=== PATIENT | male | born 1990 | race Caucasian/White ===

== ENCOUNTER 2016-10-29 16:39 | Emergency (ER) | payer OTHER ==
[2016-10-29 16:45] VITALS: BP 122/76; PULSE 77; RESP 20; TEMP 98.1
--- NOTE | 2016-10-29 17:09 | ED ---
General Adult HPI - General Chief complaint: Dental/Oral Stated complaint: Tooth Ache Time Seen by Provider: 10/29/16 16:50 Source: patient, RN notes reviewed Mode of arrival: ambulatory Limitations: no limitations - History of Present Illness Initial comments: Patient 26-year-old male who presents emergency room today with a chief complaint of dental infection. Patient does admit to a fractured tooth that happened several months ago of tooth #18. He states it has been getting worse the last 3 days. He does admit to some swelling locally to the area. He denies any other complaints or associated symptoms. Patient denies any recent fever, chills, shortness of breath, chest pain, back pain, abdominal pain, nausea or vomiting, numbness or tingling, dysuria or hematuria, constipation or diarrhea, headaches or visual changes, or any other complaints. - Related Data Home Medications Medication Instructions Recorded Confirmed Ibuprofen [Motrin] 400 mg PO DIRECTED PRN 10/29/16 10/29/16 Previous Rx's Medication Instructions Recorded Acetaminophen-Codeine 300-30mg 1 each PO Q6H PRN #15 tablet 10/29/16 [Tylenol #3] Clindamycin HCl [Cleocin] 300 mg PO Q6HR 10 Days 10/29/16 Allergies Allergy/AdvReac Type Severity Reaction Status Date / Time Penicillins Allergy Swelling Verified 10/29/16 16:45 Review of Systems ROS Statement: Those systems with pertinent positive or pertinent negative responses have been documented in the HPI. ROS Other: All systems not noted in ROS Statement are negative. Past Medical History Past Medical History: No Reported History History of Any Multi-Drug Resistant Organisms: None Reported Additional Past Surgical History / Comment(s): collar bone Past Psychological History: No Psychological Hx Reported Smoking Status: Current every day smoker Past Alcohol Use History: None Reported Past Drug Use History: None Reported General Exam - General Exam Comments Initial Comments: General: The patient is awake and alert, in no distress, and does not appear acutely ill. Eye: Pupils are equal, round and reactive to light, extra-ocular movements are intact. No nystagmus. There is normal conjunctiva bilaterally. No signs of icterus. Ears, nose, mouth and throat: There are moist mucous membranes and no oral lesions. Patient does have poor dental hygiene with multiple fractured teeth. He does have tenderness over the gum line of tooth #18 with a fractured tooth in this area. Neck: The neck is supple, there is no tenderness or JVD. Cardiovascular: There is a regular rate and rhythm. No murmur, rub or gallop is appreciated. Respiratory: Lungs are clear to auscultation, respirations are non-labored, breath sounds are equal. No wheezes, stridor, rales, or rhonchi. Musculoskeletal: Normal ROM, no tenderness. Strength 5/5. Sensation intact. Pulses equal bilaterally 2+. Neurological: A&O x 3. CN II-XII intact, There are no obvious motor or sensory deficits. Coordination appears grossly intact. Speech is normal. Skin: Skin is warm and dry and no rashes or lesions are noted. Psychiatric: Cooperative, appropriate mood & affect, normal judgment. Limitations: no limitations Course Vital Signs 10/29/16 16:44 Temperature 98.1 F Pulse Rate 77 Respiratory 20 Rate Blood Pressure 122/76 O2 Sat by Pulse 99 Oximetry Medical Decision Making - Medical Decision Making Be started on antibiotics. Does have penicillin ALLERGY be given clindamycin. Patient will be given short prescription Tylenol 3 advised to use appropriate for pain and follow-up with dentist in the next 2 days Disposition Clinical Impression: Dental abscess Disposition: HOME SELF-CARE Condition: Good Instructions: Dental Abscess (ED) Additional Instructions: Please follow dentist over the next 2 days. Please use antibiotic as prescribed and pain medication as discussed. Please return to emergency room if any symptoms increase or worsen or for any other concerns. Prescriptions: Acetaminophen-Codeine 300-30mg [Tylenol #3] 1 each PO Q6H PRN #15 tablet PRN Reason: Pain Clindamycin HCl [Cleocin] 300 mg PO Q6HR 10 Days Referrals: None,Stated [Primary Care Provider] - 1-2 days Time of Disposition: 17:08
== END 2016-10-29 17:22 | disposition home or self-care (01) ==
LOC: EC 16:39
DX: K04.7 Periapical abscess without sinus (principal); S02.5XXA Fracture of tooth (traumatic), initial encounter for closed fracture; F17.200 Nicotine dependence, unspecified, uncomplicated; Z88.0 Allergy status to penicillin; X58.XXXA Exposure to other specified factors, initial encounter
CPT/HCPCS: 99282

== ENCOUNTER → 2021-04-12 | Outpatient (CLI) | payer OTHER | END | disposition home or self-care (01) | LOC: LABWHC1 08:14 | PROVIDERS: ATTEND Emergency Medicine | DX: U07.1 COVID-19 (principal) | CPT/HCPCS: 87635 ==

== ENCOUNTER 2022-10-13 17:42 | Emergency (ER) | payer OTHER ==
[2022-10-13 17:51] VITALS: BP 119/74; PULSE 65; RESP 16; TEMP 98.9
[2022-10-13] MEDS ORDERED: CLINDAMYCIN 150 MG CAP PO STA (17:54)
[2022-10-13] MEDS ORDERED: KETOROLAC 15 MG/ML 1 ML VIAL IM STA (17:56)
--- NOTE | 2022-10-13 18:03 | ED ---
ENT HPI - General Chief complaint: Dental/Oral Stated complaint: Dental Time Seen by Provider: 10/13/22 17:53 Source: patient Mode of arrival: ambulatory - History of Present Illness Initial comments: Patient 32-year-old male presents to emergency department for dental pain. It started yesterday in the right lower molar. Taking Tylenol and Motrin with relief. Patient denies fever, chills, nausea, vomiting. He does not have a dentist. - Related Data Home Medications Medication Instructions Recorded Confirmed Ibuprofen [Motrin] 400 mg PO DIRECTED PRN 10/29/16 10/29/16 Previous Rx's Medication Instructions Recorded Acetaminophen-Codeine 300-30mg 1 each PO Q6H PRN #15 tablet 10/29/16 [Tylenol #3] clindamycin HCL [Cleocin] 300 mg PO Q6HR 10 Days cap 10/29/16 Clindamycin [Cleocin] 450 mg PO Q8H #63 capsule 10/13/22 Ibuprofen [Motrin] 600 mg PO Q8HR PRN #30 tab 10/13/22 Allergies Allergy/AdvReac Type Severity Reaction Status Date / Time Penicillins Allergy Swelling Verified 10/29/16 16:45 Review of Systems ROS Statement: Those systems with pertinent positive or pertinent negative responses have been documented in the HPI. ROS Other: All systems not noted in ROS Statement are negative. Past Medical History Past Medical History: No Reported History History of Any Multi-Drug Resistant Organisms: None Reported Additional Past Surgical History / Comment(s): collar bone Past Psychological History: No Psychological Hx Reported Smoking Status: Vaper Past Alcohol Use History: None Reported, Rare Past Drug Use History: None Reported General Exam General appearance: alert, in no apparent distress Head exam: Present: atraumatic, normocephalic, normal inspection Eye exam: Present: normal appearance, PERRL, EOMI. Absent: scleral icterus, conjunctival injection, periorbital swelling ENT exam: Present: normal oropharynx (decayed right lower molar with mild gingival erythema no fluctuance or drainable abscess) Respiratory exam: Present: normal lung sounds bilaterally. Absent: respiratory distress, wheezes, rales, rhonchi, stridor Cardiovascular Exam: Present: regular rate, normal rhythm, normal heart sounds. Absent: systolic murmur, diastolic murmur, rubs, gallop, clicks Neurological exam: Present: alert, oriented X3, CN II-XII intact Psychiatric exam: Present: normal affect, normal mood Skin exam: Present: warm, dry, intact, normal color. Absent: rash Course Vital Signs 10/13/22 17:45 Temperature 98.9 F Pulse Rate 65 Respiratory 16 Rate Blood Pressure 119/74 O2 Sat by Pulse 100 Oximetry Medical Decision Making - Medical Decision Making Was pt. sent in by a medical professional or institution (NICOLAS Martinez, REFERENCE LIBRARIAN, urgent care, hospital, or intermediate...) When possible be specific @ -No Did you speak to anyone other than the patient for history (EMS, parent, family, police, friend...)? What history was obtained from this source @ -No Did you review nursing and triage notes (agree or disagree)? Why? @ -I reviewed and agree with nursing and triage notes Were old charts reviewed (outside hosp., previous admission, EMS record, old EKG, old radiological studies, urgent care reports/EKG's, intermediate records)? Report findings @ -No old charts were reviewed Differential Diagnosis (chest pain, altered mental status, abdominal pain women, abdominal pain men, vaginal bleeding, weakness, fever, dyspnea, syncope, headache, dizziness, GI bleed, back pain, seizure, CVA, palpatations, mental health)? @ Dental infection, dental abscess, Khai angina EKG interpreted by me (3pts min.). @ -None X-rays interpreted by me (1pt min.). @ -None done CT interpreted by me (1pt min.). @ -None done U/S interpreted by me (1pt. min.). @ -None done What testing was considered but not performed or refused? (CT, X-rays, U/S, labs)? Why? @ -None What meds were considered but not given or refused? Why? @ -None Did you discuss the management of the patient with other professionals (professionals i.e. NICOLAS Martinez, REFERENCE LIBRARIAN, lab, RT, psych nurse, manager social, telecom analyst, teacher, customs officer, rehabilitation caseworker)? Give summary @ -No] Was smoking cessation discussed for >3mins.? @ -No Was critical care preformed (if so, how long)? @ -No Were there social determinants of health that impacted care today? How? (Homelessness, low income, unemployed, alcoholism, drug addiction, transportation, low edu. Level, literacy, decrease access to med. care, custodial, rehab)? @ -No Was there de-escalation of care discussed even if they declined (Discuss DNR or withdrawal of care, Hospice)? DNR status @ -No What co-morbidities impacted this encounter? (DM, HTN, Smoking, COPD, CAD, Cancer, CVA, ARF, Chemo, Hep., AIDS, mental health diagnosis, sleep apnea, morbid obesity)? @ -None Was patient admitted / discharged? Hospital course, mention meds given and route, prescriptions, significant lab abnormalities, going to OR and other pertinent info. @ Discharged. Patient treated for dental infection. No evidence of abscess. Discussed return parameters. Patient to follow-up with dentist Undiagnosed new problem with uncertain prognosis? @ -No Drug Therapy requiring intensive monitoring for toxicity (Heparin, Nitro, Insulin, Cardizem)? @ -No Were any procedures done? @ -No Diagnosis/symptom? @ Dental infection Acute, or Chronic, or Acute on Chronic? @ Acute Uncomplicated (without systemic symptoms) or Complicated (systemic symptoms)? @ Uncomplicated Side effects of treatment? @ -No Exacerbation, Progression, or Severe Exacerbation? @ -[No] Poses a threat to life or bodily function? How? (Chest pain, [place], DC, pneumonia, PE, COPD, DKA, ARF, appy, cholecystitis, CVA, Diverticulitis, Homicidal, Suicidal, threat to staff... and all critical care pts) @ -No Dr. Engel is my attending Disposition Clinical Impression: Dental infection Disposition: HOME SELF-CARE Condition: Good Instructions (If sedation given, give patient instructions): Dental Abscess (ED), Toothache (ED) Additional Instructions: Take medication as directed. This medication may cause diarrhea. Please follow-up with a dentist in 1-2 days. Return to the emergency department if you experience new, concerning, or worsening symptoms. Prescriptions: Clindamycin [Cleocin] 450 mg PO Q8H #63 capsule Ibuprofen [Motrin] 600 mg PO Q8HR PRN #30 tab PRN Reason: Pain Is patient prescribed a controlled substance at d/c from ED?: No Referrals: None,Stated [Primary Care Provider] - 1-2 days
== END 2022-10-13 18:30 | disposition home or self-care (01) ==
LOC: EC 17:42
DX: K04.7 Periapical abscess without sinus (principal); F17.290 Nicotine dependence, other tobacco product, uncomplicated; Z88.0 Allergy status to penicillin
CPT/HCPCS: 99283; 96372; J1885